=== PATIENT | male | born 1960 | race Caucasian/White ===

== ENCOUNTER 2017-08-09 12:22 | Emergency (ER) | payer SELFPAY ==
[~2017-08-09 12:22] MED LIST: CHLO10 PO; CHLO25 PO; CHLO5CAP3 PO; EXFO5TAB2 PO; FOLI1 PO; TAB-TAB PO; THIA100T PO
--- NOTE | 2017-08-09 12:43 | PD ---
HPI Chief Complaint: Fall Time Seen by Provider: 13:26 Travel History International Travel<30 days: No Contact w/Intl Traveler<30days: No History of Present Illness HPI 57-year-old male presents to the ED via EMS after a fall while intoxicated. On presentation the patient is intoxicated, noncooperative. He endorses drinking today but will not quantify how much. He states that he drinks every day. He complains of pain in his left cheek but otherwise states "I'm fine. Leave me alone. Let me go to sleep." EMS reports patient is legally blind. PFSH Past Medical History Autoimmune Disease: No Blood Disorders: No Anxiety: Yes Depression: No Heart Rhythm Problems: No Cancer: No Cardiovascular Problems: No High Cholesterol: No Chemotherapy: No Chest Pain: No Congestive Heart Failure: No Cerebrovascular Accident: No Endocrine: No Genitourinary: No Hiatal Hernia: Yes Hypertension: Yes Immune Disorder: No Musculoskeletal: No Neurologic: No Psychiatric: Yes Reproductive: No Respiratory: No Radiation Therapy: No Ulcer: Yes Past Surgical History Abdominal Surgery: Yes (HIATAL HERNIA, GALLBLADDER REMOVED) Cardiac Surgery: No Cholecystectomy: Yes Ear Surgery: No Endocrine Surgery: No Eye Surgery: No Genitourinary Surgery: No Gynecologic Surgery: No Oral Surgery: No Thoracic Surgery: No Social History Alcohol Use: Yes (DAILY ) Tobacco Use: No Substance Use: No Allergies-Medications (Allergen,Severity, Reaction): Coded Allergies: morphine (Unverified Allergy, Severe, Hallucinations, 12/29/16) oxycodone (Unverified Allergy, Severe, Itching, 12/29/16) Reported Meds & Prescriptions Reported Meds & Active Scripts Active Reported Librium (Chlordiazepoxide) 5 Mg Cap 5 Mg PO BID ON 08/18/13, THEN STOP MEDICATION Librium (Chlordiazepoxide) 5 Mg Cap 5 Mg PO Q6H ON 08/17/13 Librium 10 mg Cap (Chlordiazepoxide) 10 Mg Cap 10 Mg PO Q6 ON 08/16/13 Librium (Chlordiazepoxide) 5 Mg Cap 15 Mg PO Q6H ON 08/15/13 Librium 10 mg Cap (Chlordiazepoxide) 10 Mg Cap 20 Mg PO Q6 ON 08/14/13 Librium 25 mg Cap (Chlordiazepoxide) 25 Mg Cap 25 Mg PO Q6 ON 08/13/13 Multivitamin (Multivitamins) 1 Tab Tab 1 Tab PO DAILY 30 Days Folate 1 Mg Tab (Folic Acid) 1 Mg Tab 1 Mg PO DAILY 30 Days Thiamine HCl 100 Mg Tab 100 Mg PO DAILY 30 Days Exforge (Amlodipine/Valsartan) 5 Mg/320 Mg Tab 1 Tab PO DAILY Review of Systems ROS Limitations: Other: (patient seen in ambulatory, uncooperative.) Except as stated in HPI: all other systems reviewed are Neg Physical Exam Exam Limitations: Intoxication, Uncooperative, Other: (patient seen in ambulance hallway. ) Narrative GENERAL: Well-nourished, well-developed white male in no acute distress. SKIN: Focused skin assessment warm/dry. 1 cm superficial laceration on the left cheek bone. HEAD: Normocephalic. Tender edema of the left cheek bone. The left eye is swollen shut. EYES: Patient uncooperative to eye exam. DENTAL: Patient is able to open his close his mouth. No tenderness to palpation at the TMJs. He denies malocclusion. NECK: In a c-collar. CARDIOVASCULAR: Regular rate and rhythm without murmurs, gallops, or rubs. CHEST: Nontender throughout without deformity or crepitus. RESPIRATORY: Breath sounds clear and equal bilaterally. No accessory muscle use. GASTROINTESTINAL: Abdomen soft, non-tender, nondistended. MUSCULOSKELETAL: No cyanosis, or edema. No tenderness to palpation of the joints are up of the upper and lower extremities bilaterally. Patient moves extremities spontaneously. 5/5 strength in the muscle groups of the upper and lower extremities bilaterally. BACK: Nontender without obvious deformity. No CVA tenderness. Data Data Last Documented VS Vital Signs Date Time Temp Pulse Resp B/P (MAP) Pulse Ox O2 Delivery O2 Flow Rate FiO2 08/09/17 16:15 (76) 08/09/17 13:03 97.9 64 18 97 Room Air Orders Orders Ct Brain W/O Iv Contrast(Rout) (08/09/17 12:38) Ct Cerv Spine W/O Contrast (08/09/17 12:38) Ct Facial Bones W/O Iv Cont (08/09/17 12:38) Tetanus/Diphtheria Tox Adult (Tetanus/Di (08/09/17 13:45) Ed Discharge Order (08/09/17 16:15) MDM Medical Decision Making Medical Screen Exam Complete: Yes Emergency Medical Condition: Yes Differential Diagnosis Facial fracture versus cervical spondylosis versus skull fracture versus ICH versus acute alcohol intoxication versus other Narrative Course 57-year-old male presents to the ED via EMS after a fall while intoxicated. On presentation the patient is intoxicated, noncooperative. He endorses drinking today but will not quantify how much. He states that he drinks every day. He complains of pain in his left cheek but otherwise states "I'm fine. Leave me alone. Let me go to sleep." EMS reports patient is legally blind. Patient arrives on a backboard and in a c-collar. He was cleared from the backboard. Vitals reviewed. On exam the patient is alert, appropriately responsive although resistant to exam. Limited exam performed in the ambulance iraheta reveals a small superficial laceration on the left cheek with surrounding tender erythema and ecchymosis. The left eye is swollen shut. The patient is in a c-collar. Patient is moving all extremities spontaneously. CT head: No acute hemorrhage or mass effect. Extensive soft tissue swelling over the left orbit and facial bones with no definitive fracture visualized. CT cervical spine: Negative trauma CT per radiology read. CT facial bones: Extensive soft tissue swelling and hematoma over the left side of the face with no acute fracture or malalignment. All radiological results per radiologist read. On recheck the patient is sleeping. We'll allow him to sleep it off and reevaluate for sobriety before discharge. The patient has a visitor that comes to the bedside. She is sober and agrees to take the patient home and stay with him for the next several hours. The patient arrived approximately 1240 and is now 1625. I think is reasonable to discharge this patient into his friend's care. Patient instructed to follow-up with [facility] for treatment of chronic alcoholism. He is instructed to use ice, anti-inflammatories to treat swelling and pain from the facial injury. He is agreeable to the care plan. He is stable and discharged home. Diagnosis Primary Impression: Acute alcohol intoxication Qualified Codes: F10.929 - Alcohol use, unspecified with intoxication, unspecified Additional Impressions: Fall Qualified Codes: W19.XXXA - Unspecified fall, initial encounter Facial contusion Qualified Codes: S00.83XA - Contusion of other part of head, initial encounter Referrals: Primary Care Physician [facility] Additional Instructions: Rest, hydrate. Use ice packs 10-15 minutes per session 3-4 times a day to reduce swelling. Use [id number] pain medications as per described on the label, as needed for pain. Follow-up with her primary care provider. Follow-up with [facility] for treatment of alcohol abuse. Return to the ED for any urgent or emergent medical condition. Disposition: 01 DISCHARGE HOME Condition: Stable Thalia Benitez Aug 09, 2017 12:43
[2017-08-09 13:03] VITALS: BP 107/60; PULSE 64; RESP 18; TEMP 97.9; O2SAT 97
--- NOTE | 2017-08-09 13:15 | RADRPT ---
EXAM DATE/TIME: 08/09/2017 12:58 [facility] COMPARISON: CT BRAIN W/O CONTRAST, August 10, 2013, 16:58. INDICATIONS : Fall left eye swelling RADIATION DOSE: 67.14 CTDIvol (mGy) MEDICAL HISTORY : Hypertension. Blind SURGICAL HISTORY : None. ENCOUNTER: Initial ACUITY: 1 day PAIN SCALE: 0/10 LOCATION: cranial TECHNIQUE: Multiple contiguous axial images were obtained of the head. Using automated exposure control and adj ustment of the mA and/or kV according to patient size, radiation dose was kept as low as reasonably a chievable to obtain optimal diagnostic quality images. DICOM format image data is available electro nically for review and comparison. FINDINGS: CEREBRUM: The ventricles are stable in appearance with mild to moderate atrophic change with sulcal and ventric ular prominence. No evidence of midline shift, mass lesion, hemorrhage or acute infarction. No extra -axial fluid collections are seen. POSTERIOR FOSSA: The cerebellum and brainstem are intact. The 4th ventricle is midline. The cerebellopontine angle i s unremarkable. EXTRACRANIAL: The visualized portion of the orbits is intact. Extensive soft tissue swelling is noted over the left orbit and facial bones with no definite fracture. SKULL: The calvaria is intact. No evidence of skull fracture. CONCLUSION: 1. No acute hemorrhage or mass effect. 2. Extensive soft tissue swelling over the left orbit and facial bones with no definite fracture visu alized. Please see facial bone CT which is pending and will be reported separately. Mohit Velazquez MD on August 09, 2017 at 13:12 Board Certified Radiologist. This report was verified electronically.
--- NOTE | 2017-08-09 13:24 | RADRPT ---
EXAM DATE/TIME: 08/09/2017 12:58 [facility] COMPARISON: No previous studies available for comparison. INDICATIONS : Fall lt eye swelling RADIATION DOSE: 19.83 CTDIvol (mGy) MEDICAL HISTORY : Hypertension. Legally blind SURGICAL HISTORY : None. ENCOUNTER: Initial ACUITY: 1 day PAIN SCALE: 0/10 LOCATION: neck TECHNIQUE: Volumetric scanning of the cervical spine was performed. Multiplanar reconstructions i n the sagittal, coronal and oblique axial planes were performed. Using automated exposure control a nd adjustment of the mA and/or kV according to patient size, radiation dose was kept as low as reason ably achievable to obtain optimal diagnostic quality images. DICOM format image data is available e lectronically for review and comparison. FINDINGS: The sagittal reconstructions demonstrate normal alignment and normal prevertebral soft tissues. The d ens is intact and there is a normal atlantoaxial relationship. The axial images demonstrate that the vertebral bodies and posterior elements are intact. The soft ti ssues are within normal limits. There is no evidence of acute fracture or malalignment. CONCLUSION: Negative trauma CT. Mohit Velazquez MD on August 09, 2017 at 13:21 Board Certified Radiologist. This report was verified electronically.
--- NOTE | 2017-08-09 13:26 | RADRPT ---
EXAM DATE/TIME: 08/09/2017 12:58 [facility] COMPARISON: No previous studies available for comparison. INDICATIONS : Pain and swelling along the left orbit after fall.. RADIATION DOSE: 21.96 CTDIvol (mGy) MEDICAL HISTORY : Hypertension. Legally blind SURGICAL HISTORY : None. ENCOUNTER: Initial ACUITY: 1 day PAIN SCORE: 0/10 LOCATION: facial TECHNIQUE: Volumetric scanning of the facial bones was performed. Using automated exposure control and adjustme nt of the mA and/or kV according to patient size, radiation dose was kept as low as reasonably achiev able to obtain optimal diagnostic quality images. DICOM format image data is available electronicall y for review and comparison. FINDINGS: ORBITS: The orbital and infraorbital osseous structures are intact. The retroconal structures have a normal configuration. No radiopaque foreign bodies are seen. NASAL BONE: The nasal bone and maxillary spine are intact ZYGOMATIC ARCHES: Symmetric without evidence of fracture. SINUSES: The maxillary, ethmoid and frontal sinuses are intact. No air-fluid levels seen. NASAL CAVITY: The nasal septum is intact and midline. The lacrimal ducts are intact. SOFT TISSUES: No radiopaque foreign bodies seen. Extensive soft tissue swelling is noted over the left orbit and fa cial bones with mildly heterogeneous hematoma along the left maxilla. This measures up to 3.1 x 1.9 c m in diameter. INTRACRANIAL: No intracranial air seen. CRIBIFORM PLATE: Grossly intact. CONCLUSION: Extensive soft tissue swelling and hematoma over the left side of the face with no acute fracture or malalignment. Mohit Velazquez MD on August 09, 2017 at 13:22 Board Certified Radiologist. This report was verified electronically.
[2017-08-09] MEDS ORDERED: TETANUS/DIPHTHERIA TOXOID ADULT 0.5 ML VIAL IM ONE (13:45)
== END 2017-08-09 16:25 | disposition home or self-care (01) ==
LOC: NEDAMB 12:22
DX: F10.129 Alcohol abuse with intoxication, unspecified (principal); S00.83XA Contusion of other part of head, initial encounter; W19.XXXA Unspecified fall, initial encounter; Z23 Encounter for immunization
CPT/HCPCS: 70450; 70486; 72125; 90471; 90714

== ENCOUNTER 2017-10-03 14:59 | Inpatient (IN) | payer MEDICARE ==
[2017-10-03] VITALS (14 sets, daily range): BP systolic 114–153; BP diastolic 62–89; PULSE 80–110; RESP 17–26; TEMP 97.9–99; O2SAT 96–98
[~2017-10-03] VITALS: Ht 177.8 cm; Wt 96.5 kg
[2017-10-03] MEDS ORDERED: TRAZ50TA12 PO (15:15)
[2017-10-03] MEDS ORDERED: CARV3.12 PO (15:15)
[2017-10-03] MEDS ORDERED: NIFE20 PO (15:15)
[2017-10-03] MEDS ORDERED: ATOR40TA16 PO (15:15)
--- NOTE | 2017-10-03 15:24 | PD ---
HPI Chief Complaint: General Weakness Time Seen by Provider: 15:18 Travel History International Travel<30 days: No Contact w/Intl Traveler<30days: No Traveled to known affect area: No History of Present Illness HPI Patient presents to the emergency department for caregiver issues. Per EMS the neighbors called 911 because they are concerned that his caretakers are not providing adequate care for him. He states that he has face burning which is chronic for him. There is a cope with his been living in his home for about 8 months taking care of him. He did not eat breakfast or brushes teeth this morning. States that he drinks 1 glass of liquor every day. He does have a history of tremors with alcohol withdrawal but he denies alcohol withdrawal seizures. He denies chest pain, headache, shortness of breath, nausea, vomiting , abdominal pain, neck pain. States that he fell 3 weeks ago. Report subjective chills and fever. States he thinks his last drink was this morning. PFSH Past Medical History Autoimmune Disease: No Blood Disorders: No Anxiety: Yes Depression: No Heart Rhythm Problems: No Cancer: No Cardiovascular Problems: No High Cholesterol: Yes Chemotherapy: No Chest Pain: No Congestive Heart Failure: No Cerebrovascular Accident: No Diminished Hearing: No Endocrine: No Gastrointestinal Disorders: Yes Genitourinary: No Hiatal Hernia: Yes Hypertension: Yes Immune Disorder: No Musculoskeletal: No Neurologic: No Psychiatric: Yes Reproductive: No Respiratory: No Radiation Therapy: No Ulcer: Yes Influenza Vaccination: Yes ?: Not Past Surgical History Abdominal Surgery: Yes (HIATAL HERNIA, GALLBLADDER REMOVED) Cardiac Surgery: No Cholecystectomy: Yes Ear Surgery: No Endocrine Surgery: No Eye Surgery: No Genitourinary Surgery: No Gynecologic Surgery: No Oral Surgery: No Thoracic Surgery: No Other Surgery: Yes Social History Alcohol Use: Yes (DAILY ) Tobacco Use: No Substance Use: No Allergies-Medications (Allergen,Severity, Reaction): Coded Allergies: morphine (Unverified Allergy, Severe, Hallucinations, 10/03/17) oxycodone (Unverified Allergy, Severe, Itching, 10/03/17) Reported Meds & Prescriptions Reported Meds & Active Scripts Active Reported Atorvastatin (Atorvastatin Calcium) 40 Mg Tab 0 PO HS Trazodone (Trazodone HCl) 50 Mg Tab 0 PO HS Nifedipine 20 Mg Cap 0 PO QID Carvedilol 3.125 Mg Tab 0 PO BID Review of Systems Except as stated in HPI: all other systems reviewed are Neg Physical Exam Narrative GENERAL: No acute distress. SKIN: Focused skin assessment warm/dry. HEAD: Atraumatic. Normocephalic. EYES: Patient is blind. No scleral icterus. No injection or drainage. ENT: No nasal bleeding or discharge. Mucous membranes pink and moist. NECK: Trachea midline. No JVD. CARDIOVASCULAR: Regular rate and rhythm. No murmur appreciated. RESPIRATORY: No accessory muscle use. Clear to auscultation. Breath sounds equal bilaterally. GASTROINTESTINAL: Abdomen soft, non-tender, nondistended. Hepatic and splenic margins not palpable. MUSCULOSKELETAL: No obvious deformities. No clubbing. No cyanosis. No edema. NEUROLOGICAL: Awake and alert. No obvious cranial nerve deficits. Motor grossly within normal limits. Normal speech. PSYCHIATRIC: Appropriate mood and affect; insight and judgment normal. Alert and oriented to person, place, time. Data Data Last Documented VS Vital Signs Date Time Temp Pulse Resp B/P (MAP) Pulse Ox O2 Delivery O2 Flow Rate FiO2 10/03/17 16:28 93 18 150/89 (109) 98 10/03/17 15:38 Room Air 10/03/17 15:05 97.9 Orders Orders Electrocardiogram (10/03/17 15:18) Complete Blood Count With Diff (10/03/17 15:18) Comprehensive Metabolic Panel (10/03/17 15:18) Creatine Kinase (Cpk) (10/03/17 15:18) Prothrombin Time / Inr (Pt) (10/03/17 15:18) Act Partial Throm Time (Ptt) (10/03/17 15:18) Troponin I (10/03/17 15:18) Urinalysis - C+S If Indicated (10/03/17 15:18) Chest, Single Ap (10/03/17 15:18) Ct Brain W/O Iv Contrast(Rout) (10/03/17 15:18) Sodium Chloride 0.9% Flush (Ns Flush) (10/03/17 15:30) Drug Screen, Random Urine (10/03/17 15:18) Alcohol (Ethanol) (10/03/17 15:18) Tylenol (Acetaminophen) (10/03/17 15:18) Salicylates (Aspirin) (10/03/17 15:18) Magnesium (Mg) (10/03/17 15:18) [place] (Li) (10/03/17 15:18) Blood Glucose (10/03/17 15:26) Ecg Monitoring (10/03/17 15:26) Iv Access Insert/Monitor (10/03/17 15:26) Oximetry (10/03/17 15:26) Potassium Chloride (Kcl) (10/03/17 16:45) Potassium Chlor 20 Meq Premix (Kcl 20 Me (10/03/17 16:45) Sodium Chlor 0.9% 1000 Ml Inj (Ns 1000 M (10/03/17 16:45) Admit Order (Ed Use Only) (10/03/17 17:22) Labs Laboratory Tests Test 10/03/17 15:20 10/03/17 15:30 10/03/17 16:45 Urine Collection Type CLEAN CATCH Urine Color YELLOW Urine Turbidity CLEAR Urine pH 6.0 Urine Specific [place] 1.020 Urine Protein 100 mg/dL Urine Glucose (UA) NEG mg/dL Urine Ketones 80 OR GREATER mg/dL Urine Occult Blood SMALL Urine Nitrite NEG Urine Bilirubin MOD Urine Urobilinogen 2.0 MG/DL Urine Leukocyte Esterase NEG Urine RBC 4-9 /hpf Urine Squamous Epithelial Cells 0-5 /hpf Urine Granular Casts 6-9 /lpf Microscopic Urinalysis Comment CULT NOT INDICATED Urine Collection Time 15:20 Urine Opiates Screen NEG Urine Barbiturates Screen NEG Urine Amphetamines Screen NEG Urine Benzodiazepines Screen NEG Urine Cocaine Screen NEG Urine Cannabinoids Screen NEG White Blood Count 4.3 TH/MM3 Red Blood Count 4.08 MIL/MM3 Hemoglobin 14.0 GM/DL Hematocrit 40.3 % Mean Corpuscular Volume 98.9 FL Mean Corpuscular Hemoglobin 34.3 PG Mean Corpuscular Hemoglobin Concent 34.7 % Red Cell Distribution Width 12.7 % Platelet Count 76 TH/MM3 Mean Platelet Volume 6.9 FL Neutrophils (%) (Auto) 62.0 % Lymphocytes (%) (Auto) 24.8 % Monocytes (%) (Auto) 12.4 % Eosinophils (%) (Auto) 0.2 % Basophils (%) (Auto) 0.6 % Neutrophils # (Auto) 2.7 TH/MM3 Lymphocytes # (Auto) 1.1 TH/MM3 Monocytes # (Auto) 0.5 TH/MM3 Eosinophils # (Auto) 0.0 TH/MM3 Basophils # (Auto) 0.0 TH/MM3 CBC Comment AUTO DIFF Differential Comment AUTO DIFF CONFIRMED Prothrombin Time 11.6 SEC Prothromb Time International Ratio 1.1 RATIO Activated Partial Thromboplast Time 27.6 SEC Blood Urea Nitrogen 10 MG/DL Creatinine 0.94 MG/DL Random Glucose 108 MG/DL Total Protein 7.4 GM/DL Albumin 3.2 GM/DL Calcium Level 8.2 MG/DL Magnesium Level 1.5 MG/DL Alkaline Phosphatase 76 U/L Aspartate Amino Transf (AST/SGOT) 416 U/L Alanine Aminotransferase (ALT/SGPT) 167 U/L Total Bilirubin 1.5 MG/DL Sodium Level 136 MEQ/L Potassium Level 2.7 MEQ/L Chloride Level 94 MEQ/L Carbon Dioxide Level 23.7 MEQ/L Anion Gap 18 MEQ/L Estimat Glomerular Filtration Rate 83 ML/MIN Total Creatine Kinase 226 U/L Troponin I LESS THAN 0.02 NG/ML Ethyl Alcohol Level 330 MG/DL MDM Medical Decision Making Medical Screen Exam Complete: Yes Emergency Medical Condition: Yes Interpretation(s) ECG: Sinus rhythm, rate 83, left axis deviation, ST depression 1 and aVL, T- wave inversion in V1 V2 V3 Labs: Decreased potassium, mag 1.5, AST and ALT increased, alcohol increased; lithium/salicylate/acetaminophen pending at time of admission, admit team to follow. Last Impressions Head CT 10/03/171517 Signed Impressions: Service Date/Time: Tuesday, October 03, 2017 16:00 - CONCLUSION: 1. Stable senescent changes. 2. No acute intracranial abnormality. Sammy Solomon MD Chest X-Ray 10/03/171517 Signed Impressions: Service Date/Time: Tuesday, October 03, 2017 15:45 - CONCLUSION: 1. No acute cardiopulmonary disease. Sammy Solomon MD Differential Diagnosis EtOH abuse, EtOH intoxication, infectious process (UTI, pna), intracranial abnormality (CVA, hemorrhage) Narrative Course Patient presents to the emergency department with concern for caregiver issues. Place patient on monitoring specialist, IV access obtained, and head CT/chest x-ray , EKG, labs ordered. Ordered for KCl 40 mEQ p.o. and 20 mEq IV over 2 hours for hypokalemia. 1 L IV normal saline also ordered. Spoke to Pily test case developer, advised to admit patient for observation. Physician Communication Physician Communication Spoke to Pily test case developer about loss of caregiver/caregiver issues. Advised me to admit patient for observation. Diagnosis Primary Impression: Hypokalemia Additional Impression: Intoxication Admitting Information Admitting Physician Requests: Observation Condition: Stable Chaya Cross MD October 03, 2017 15:24
[2017-10-03] MEDS ORDERED: SODIUM CHLORIDE 0.9% FLUSH 10 ML FLUSH IV FLUSH PRN ×2 (15:30→17:30)
[2017-10-03 15:31] LABS: BILIRUBIN, URINE MOD (NEG); BLOOD, URINE SMALL (NEG); GLUCOSE,URINE NEG (NEG); KETONE, URINE 80 OR GREATER mg/dL (NEG); NITRITE,URINE NEG (NEG); URINE COLOR YELLOW (YELLW/STRAW); URINE LEUKOCYTE ESTERASE NEG (NEG)
[2017-10-03 15:39] LABS: SQUAMOUS EPITHELIAL CELL URINE 0-5 /hpf (0-5)
[2017-10-03 15:39] LABS: AUTOMATED NEUTROPHIL # 2.7 TH/MM3 (1.8-7.7); BASOPHIL % 0.6 % (0.0-2.0); EOSINOPHIL % 0.2 % (0.0-4.0); HEMATOCRIT 40.3 % (39.0-51.0); LYMPH % 24.8 % (9.0-44.0); LYMPHOCYTE # 1.1 TH/MM3 (1.0-4.8); MEAN CELL VOLUME 98.9 FL (80.0-100.0); MEAN CORPUSCULAR HEMOGLOBIN 34.3 PG (27.0-34.0); MEAN CORPUSCULAR HGB CONC 34.7 % (32.0-36.0); MEAN PLATELET VOLUME 6.9 FL (7.0-11.0); MONO % 12.4 % (0.0-8.0); MONOCYTE # 0.5 TH/MM3 (0-0.9); PLATELET COUNT 76 TH/MM3 (150-450); RED BLOOD COUNT 4.08 MIL/MM3 (4.50-5.90); RED CELL DISTRIBUTION WIDTH 12.7 % (11.6-17.2); WHITE BLOOD COUNT 4.3 TH/MM3 (4.0-11.0)
--- NOTE | 2017-10-03 16:05 | RADRPT ---
EXAM DATE/TIME: 10/03/2017 15:45 [facility] COMPARISON: No previous studies available for comparison. INDICATIONS : Syncope MEDICAL HISTORY : Hypertension. SURGICAL HISTORY : None. ENCOUNTER: Initial ACUITY: 1 day PAIN SCORE: 0/10 LOCATION: Bilateral chest FINDINGS: A single view of the chest demonstrates the lungs to be symmetrically aerated without evidence of mas s, infiltrate or effusion. The cardiomediastinal contours are unremarkable. Osseous structures are intact. CONCLUSION: 1. No acute cardiopulmonary disease. Sammy Solomon MD on October 03, 2017 at 16:03 Board Certified Radiologist. This report was verified electronically.
--- NOTE | 2017-10-03 16:18 | RADRPT ---
EXAM DATE/TIME: 10/03/2017 16:00 [facility] COMPARISON: CT BRAIN W/O CONTRAST, August 09, 2017, 12:58. INDICATIONS : Altered mental status. Weakness. RADIATION DOSE: 57.21 CTDIvol (mGy) MEDICAL HISTORY : Hypertension. Blind. SURGICAL HISTORY : Cholecystectomy. Hiatal hernia. ENCOUNTER: Initial ACUITY: 1 day PAIN SCALE: 0/10 LOCATION: cranial TECHNIQUE: Multiple contiguous axial images were obtained of the head. Using automated exposure control and adj ustment of the mA and/or kV according to patient size, radiation dose was kept as low as reasonably a chievable to obtain optimal diagnostic quality images. DICOM format image data is available electro nically for review and comparison. FINDINGS: CEREBRUM: Mild diffuse cerebral volume loss. The ventricles are normal for degree of atrophy. No evidence of m idline shift, mass lesion, hemorrhage or acute infarction. No extra-axial fluid collections are seen . POSTERIOR FOSSA: The cerebellum and brainstem are intact. The 4th ventricle is midline. The cerebellopontine angle i s unremarkable. EXTRACRANIAL: The visualized portion of the orbits is intact. SKULL: The calvaria is intact. No evidence of skull fracture. CONCLUSION: 1. Stable senescent changes. 2. No acute intracranial abnormality. Sammy Solomon MD on October 03, 2017 at 16:15 Board Certified Radiologist. This report was verified electronically.
[2017-10-03 16:19] LABS: ALBUMIN 3.2 GM/DL (3.4-5.0); ALKALINE PHOSPHATASE 76 U/L (45-117); ALT (GPT) 167 U/L (12-78); AST (GOT) 416 U/L (15-37); BICARBONATE 23.7 MEQ/L (21.0-32.0); BLOOD UREA NITROGEN 10 MG/DL (7-18); CALCIUM 8.2 MG/DL (8.5-10.1); CHLORIDE 94 MEQ/L (98-107); CREATININE 0.94 MG/DL (0.60-1.30); GLOMERULAR FILTRATION RATE 83 ML/MIN (>89); GLUCOSE,RANDOM 108 MG/DL (74-106); MAGNESIUM 1.5 MG/DL (1.5-2.5); SODIUM (NA) 136 MEQ/L (136-145); TOTAL BILIRUBIN ADULT 1.5 MG/DL (0.2-1.0); TOTAL PROTEIN 7.4 GM/DL (6.4-8.2); TROPONIN I LESS THAN 0.02 NG/ML (0.02-0.05)
[2017-10-03 16:34] LABS: INTERNATIONAL NORMALIZED RATIO 1.1 RATIO; PROTHROMBIN TIME - PATIENT 11.6 SEC (9.8-11.6)
[2017-10-03] MEDS ORDERED: SODIUM CHLOR 0.9% 1000 ML INJ 1,000 ML IV ONE (16:45)
[2017-10-03] MEDS ORDERED: POTASSIUM CHLOR 20 MEQ PREMIX 100 ML IV ONE (16:45)
[2017-10-03] MEDS: POTASSIUM CHLORIDE 10 MEQ CONTROLLED RELEASE TAB PO SCH (16:47)
[2017-10-03] MEDS ORDERED: FLUMAZENIL 0.5 MG/5 ML VIAL IV PUSH PRN (17:30)
[2017-10-03] MEDS ORDERED: NALOXONE HCL 0.4 MG/ML AMP IV PUSH PRN (17:30)
[2017-10-03] MEDS ORDERED: ACETAMINOPHEN 325 MG TAB PO PRN (17:30)
[2017-10-03] MEDS ORDERED: LORazepam 2 MG/ML VIAL IV PUSH PRN ×3 (17:30)
[2017-10-03 17:40] LABS: ACETAMINOPHEN LESS THAN 2.0 MCG/ML (10.0-30.0)
[2017-10-03] MEDS ORDERED: CARV12.52 PO (18:43)
[2017-10-03] MEDS ORDERED: TORS5TAB2 PO (18:43)
[2017-10-03] MEDS ORDERED: NIFE90TA2 (18:43)
[2017-10-03] MEDS: LACTATED RINGER'S 1000 ML INJ 1,000 ML IV SCH (18:45)
[2017-10-03] MEDS: LORazepam 2 MG/ML VIAL IV PUSH PRN (19:13)
[2017-10-03] MEDS: CARVEDILOL 6.25 MG TAB PO SCH (20:36)
[2017-10-03] MEDS: LORazepam 2 MG TAB PO PRN ×2 (20:36→23:57)
[2017-10-03 20:42] LABS: MAGNESIUM 1.6 MG/DL (1.5-2.5)
[2017-10-03 20:46] LABS: PHOSPHORUS 2.1 MG/DL (2.5-4.9)
[2017-10-03] MEDS ORDERED: MAGNESIUM SULFATE 1 GM PREMIX 100 ML IV ONE (21:45)
[2017-10-03] MEDS ORDERED: POTASSIUM PHOSPHATE INJ 15 MMOL in SODIUM CHLORIDE 0.9% INJ 150 ML IV ONE (21:45)
[2017-10-03] MEDS: SODIUM CHLORIDE 0.9% FLUSH 10 ML FLUSH IV FLUSH SCH (22:08)
--- NOTE | 2017-10-03 22:46 | EKG ---
Date Performed: 10/03/2017 Time Performed: 15:55:51 PTAGE: 57 years EKG: Sinus rhythm LEFT AXIS DEVIATION NONSPECIFIC T WAVE ABNORMALITIES POOR R WAVE PROGRESSION ABNORMAL ECG PREVIOUS TRACING : 08/10/2013 13.39 No significant change from previous tracing noted. DOCTOR: Sonny Holden Interpretating Date/Time 10/03/2017 22:45:11
[2017-10-04] VITALS (15 sets, daily range): BP systolic 113–140; BP diastolic 40–86; PULSE 80–118; RESP 17–32; TEMP 98–99.8; O2SAT 92–97
[2017-10-04] MEDS: LORazepam 2 MG/ML VIAL IV PUSH PRN ×3 (04:18→16:19)
[2017-10-04 05:16] LABS: AUTOMATED NEUTROPHIL # 3.5 TH/MM3 (1.8-7.7); BASOPHIL % 0.4 % (0.0-2.0); EOSINOPHIL % 0.6 % (0.0-4.0); HEMATOCRIT 37.2 % (39.0-51.0); HEMOGLOBIN 12.7 GM/DL (13.0-17.0); LYMPH % 15.8 % (9.0-44.0); LYMPHOCYTE # 0.8 TH/MM3 (1.0-4.8); MEAN CELL VOLUME 100.3 FL (80.0-100.0); MEAN CORPUSCULAR HEMOGLOBIN 34.2 PG (27.0-34.0); MEAN CORPUSCULAR HGB CONC 34.1 % (32.0-36.0); MEAN PLATELET VOLUME 7.2 FL (7.0-11.0); MONO % 11.4 % (0.0-8.0); MONOCYTE # 0.6 TH/MM3 (0-0.9); NEUT % 71.8 % (16.0-70.0); PLATELET COUNT 63 TH/MM3 (150-450); RED BLOOD COUNT 3.71 MIL/MM3 (4.50-5.90); RED CELL DISTRIBUTION WIDTH 12.2 % (11.6-17.2); WHITE BLOOD COUNT 4.9 TH/MM3 (4.0-11.0)
[2017-10-04 05:22] LABS: CHLORIDE 98 MEQ/L (98-107); SODIUM (NA) 137 MEQ/L (136-145)
[2017-10-04 05:25] LABS: CALCIUM 8.3 MG/DL (8.5-10.1)
[2017-10-04 05:26] LABS: BICARBONATE 27.6 MEQ/L (21.0-32.0); BLOOD UREA NITROGEN 8 MG/DL (7-18); GLUCOSE,RANDOM 121 MG/DL (74-106)
[2017-10-04] MEDS: LACTATED RINGER'S 1000 ML INJ 1,000 ML IV SCH ×2 (05:27→16:22)
[2017-10-04 05:29] LABS: ALT (GPT) 146 U/L (12-78); AST (GOT) 353 U/L (15-37); CREATININE 0.85 MG/DL (0.60-1.30); GLOMERULAR FILTRATION RATE 93 ML/MIN (>89)
[2017-10-04 05:31] LABS: TOTAL BILIRUBIN ADULT 1.1 MG/DL (0.2-1.0); TOTAL PROTEIN 6.8 GM/DL (6.4-8.2)
[2017-10-04 05:32] LABS: ALKALINE PHOSPHATASE 102 U/L (45-117)
[2017-10-04] MEDS: ONDANSETRON HCL 4 MG/2 ML VIAL IVP PRN (06:17)
[2017-10-04] MEDS ORDERED: SODIUM PHOSPHATE INJ 30 MMOL in SODIUM CHLOR 0.9% 250 ML INJ 240 ML IV PRN (09:15)
[2017-10-04] MEDS ORDERED: MAGNESIUM OXIDE 400 MG TAB PO PRN (09:15)
[2017-10-04] MEDS ORDERED: POTASSIUM CHLOR 40 MEQ PREMIX 100 ML IV PRN ×2 (09:15)
[2017-10-04] MEDS ORDERED: POTASSIUM PHOSPHATE INJ 30 MMOL in SODIUM CHLOR 0.9% 250 ML INJ 250 ML IV PRN (09:15)
[2017-10-04] MEDS ORDERED: MAGNESIUM SULFATE INJ 4 GM in SODIUM CHLORIDE 0.9% INJ 92 ML IV PRN (09:15)
[2017-10-04] MEDS ORDERED: POTASSIUM CHLORIDE 25 MEQ EFFERVESCENT TAB PO PRN (09:15)
[2017-10-04] MEDS ORDERED: POTASSIUM PHOSPHATE MONOBASIC 500 MG TAB PO PRN (09:15)
[2017-10-04] MEDS: CARVEDILOL 6.25 MG TAB PO SCH ×2 (09:22→20:00)
[2017-10-04] MEDS: POTASSIUM CHLORIDE 10 MEQ CONTROLLED RELEASE TAB PO SCH (09:23)
[2017-10-04] MEDS: SODIUM CHLORIDE 0.9% FLUSH 10 ML FLUSH IV FLUSH SCH ×2 (09:25→20:00)
[2017-10-04 10:10] LABS: MAGNESIUM 1.4 MG/DL (1.5-2.5)
[2017-10-04 10:13] LABS: PHOSPHORUS 1.5 MG/DL (2.5-4.9)
[2017-10-04] MEDS: FOLIC ACID 1 MG TAB PO SCH (10:44)
[2017-10-04] MEDS: LORazepam 2 MG TAB PO PRN ×2 (10:44→20:00)
[2017-10-04] MEDS: THIAMINE HCL 100 MG TAB PO SCH (10:44)
[2017-10-04] MEDS: CYANOCOBALAMIN 100 MCG TAB PO SCH (10:54)
--- NOTE | 2017-10-04 12:26 | HHI.HP ---
HPI Service [facility] Primary Care Physician Unknown Admission Diagnosis Hypokalemia, ETOH, caregiver issues, blind Diagnoses: Chief Complaint: Generalized weakness Travel History International Travel<30 Days: No Contact w/Intl Traveler <30 Da: No Traveled to Known Affected Are: No History of Present Illness This patient is a 57-year-old gentleman with a history of ischemic optic neuritis and requires quite a bit of care. He also drinks quite a bit of alcohol and has been doing very well living independently. His neighbors brought him into the hospital because he was unable to care for himself. Patient drinks liquor daily and reports "I am going into DTs". His alcohol level on arrival was 330. Patient did have elevated IN gap and had some hypomagnesemia of 1.5 as well as hypokalemia of 2.7. His LFTs are elevated. Patient has been given IV hydration electrolytes and appears to have improved somewhat. On arrival and evaluation here patient is very tachycardic and tremulous and will need further evaluation in the hospital. Review of Systems Constitutional: DENIES: Diaphoretic episodes, Fatigue, Fever, Weight gain, Weight loss, Chills, Dizziness, Change in appetite, Night Sweats Endocrine: DENIES: Heat/cold intolerance Eyes: COMPLAINS OF: Vision loss, DENIES: Blurred vision, Diplopia, Eye inflammation, Eye pain, Photosensitivity, Double Vision Ears, nose, mouth, throat: DENIES: Tinnitus, Hearing loss, Vertigo, Nasal discharge, Oral lesions, Throat pain, Hoarseness, Ear Pain, Running Nose, Epistaxis, Sinus Pain, Toothache, Odynophagia Cardiovascular: DENIES: Chest pain, Palpitations, Syncope, Dyspnea on Exertion , PND, Lower Extremity Edema, Orthopnea, Claudication Gastrointestinal: DENIES: Abdominal pain, Black stools, Bloody stools, Constipation, Diarrhea, Nausea, Vomiting, Difficulty Swallowing, Anorexia Genitourinary: DENIES: Sexual dysfunction, Urinary frequency, Urinary incontinence, Urgency, Hematuria, Dysuria, Nocturia, Penile Discharge, Testicular Pain, Testicular Swelling Musculoskeletal: DENIES: Joint pain, Muscle aches, Stiffness, Joint Swelling, Back pain, Neck pain Integumentary: DENIES: Abnormal pigmentation, Nail changes, Pruritus, Rash Hematologic/lymphatic: DENIES: Bruising, Lymphadenopathy Immunologic/allergic: DENIES: Eczema, Urticaria Neurologic: COMPLAINS OF: Abnormal gait, Tremor, Poor Balance, DENIES: Headache , Localized weakness, Paresthesias, Seizures, Speech Problems Psychiatric: COMPLAINS OF: Anxiety, DENIES: Confusion, Mood changes, Depression , Hallucinations, Agitation, Suicidal Ideation, Homicidal Ideation, Delusions Except as stated in HPI: all other systems reviewed are Neg Past Family Social History Past Medical History Ischemic optic neuritis with blindness Alcohol dependency Hypertension Hyperlipidemia Anxiety Past Surgical History Cholecystectomy Hernia Reported Medications Reviewed in the EMR Allergies: Coded Allergies: morphine (Unverified Allergy, Severe, Hallucinations, 10/03/17) oxycodone (Unverified Allergy, Severe, Itching, 10/03/17) Active Ordered Medications Reviewed in the EMR Family History Patient drinks vodka daily Lives alone No tobacco Social History Father from complications of CHF Mother is alive and well in [place] Physical Exam Vital Signs Vital Signs Date Time Temp Pulse Resp B/P (MAP) Pulse Ox O2 Delivery O2 Flow Rate FiO2 10/04/17 04:00 98.0 98 22 131/40 (70) 95 10/04/17 00:03 98.9 104 22 113/67 (82) 10/03/17 23:05 110 20 114/74 (87) 10/03/17 23:02 106 10/03/17 22:07 102 20 118/67 (84) 10/03/17 21:07 96 17 114/62 (79) 96 10/03/17 20:07 96 19 133/85 (101) 96 10/03/17 19:07 80 25 150/86 (107) 97 10/03/17 19:00 99.0 86 26 153/85 (107) 96 10/03/17 18:53 86 19 136/81 (99) 97 10/03/17 18:00 105 10/03/17 17:46 75 18 145/77 (99) 99 10/03/17 17:45 98.7 86 19 136/81 (99) 97 10/03/17 16:28 93 18 150/89 (109) 98 10/03/17 15:38 84 18 125/70 (88) 98 Room Air 10/03/17 15:05 97.9 84 18 127/72 (90) 97 Physical Exam GENERAL: This is a well-nourished, well-developed patient, tremorous SKIN: No rashes, ecchymoses or lesions. Cool and dry. HEAD: Atraumatic. Normocephalic. No temporal or scalp tenderness. EYES: Pupils equal round and reactive. Extraocular motions intact. No scleral icterus. No injection or drainage. ENT: Nose without bleeding, purulent drainage or septal hematoma. Throat without erythema, tonsillar hypertrophy or exudate. Uvula midline. Airway patent. NECK: Trachea midline. No JVD or lymphadenopathy. Supple, nontender, no meningeal signs. CARDIOVASCULAR: Sinus tachycardia without murmurs gallops or rubs RESPIRATORY: Clear to auscultation. Breath sounds equal bilaterally. No wheezes , rales, or rhonchi. GASTROINTESTINAL: Abdomen soft, non-tender, nondistended. No hepato-splenomegaly , or palpable masses. No guarding. MUSCULOSKELETAL: Extremities without clubbing, cyanosis, or edema. No joint tenderness, effusion, or edema noted. No calf tenderness. Negative Homans sign bilaterally. NEUROLOGICAL: Awake and alert. Vision impaired. Motor and sensory grossly within normal limits. Five out of 5 muscle strength in all muscle groups. Normal speech. Laboratory Laboratory Tests Test 10/03/17 15:20 10/03/17 15:30 10/03/17 16:45 10/03/17 20:18 Urine Collection Type CLEAN CATCH Urine Color YELLOW Urine Turbidity CLEAR Urine pH 6.0 Urine Specific [place] 1.020 Urine Protein 100 Urine Glucose (UA) NEG Urine Ketones 80 OR GREATER Urine Occult Blood SMALL Urine Nitrite NEG Urine Bilirubin MOD Urine Urobilinogen 2.0 Urine Leukocyte Esterase NEG Urine RBC 4-9 Urine Squamous Epithelial Cells 0-5 Urine Granular Casts 6-9 Microscopic Urinalysis Comment CULT NOT INDICATED Urine Collection Time 15:20 Urine Opiates Screen NEG Urine Barbiturates Screen NEG Urine Amphetamines Screen NEG Urine Benzodiazepines Screen NEG Urine Cocaine Screen NEG Urine Cannabinoids Screen NEG White Blood Count 4.3 Red Blood Count 4.08 Hemoglobin 14.0 Hematocrit 40.3 Mean Corpuscular Volume 98.9 Mean Corpuscular Hemoglobin 34.3 Mean Corpuscular Hemoglobin Concent 34.7 Red Cell Distribution Width 12.7 Platelet Count 76 Mean Platelet Volume 6.9 Neutrophils (%) (Auto) 62.0 Lymphocytes (%) (Auto) 24.8 Monocytes (%) (Auto) 12.4 Eosinophils (%) (Auto) 0.2 Basophils (%) (Auto) 0.6 Neutrophils # (Auto) 2.7 Lymphocytes # (Auto) 1.1 Monocytes # (Auto) 0.5 Eosinophils # (Auto) 0.0 Basophils # (Auto) 0.0 CBC Comment AUTO DIFF Differential Comment AUTO DIFF CONFIRMED Prothrombin Time 11.6 Prothromb Time International Ratio 1.1 Activated Partial Thromboplast Time 27.6 Blood Urea Nitrogen 10 Creatinine 0.94 Random Glucose 108 Total Protein 7.4 Albumin 3.2 Calcium Level 8.2 Magnesium Level 1.5 1.6 Alkaline Phosphatase 76 Aspartate Amino Transf (AST/SGOT) 416 Alanine Aminotransferase (ALT/SGPT) 167 Total Bilirubin 1.5 Sodium Level 136 Potassium Level 2.7 3.4 Chloride Level 94 Carbon Dioxide Level 23.7 Anion Gap 18 Estimat Glomerular Filtration Rate 83 Total Creatine Kinase 226 Troponin I LESS THAN 0.02 Salicylates Level LESS THAN 1.7 Acetaminophen Level LESS THAN 2.0 Ethyl Alcohol Level 330 [place] Level LESS THAN 0.1 Phosphorus Level 2.1 Hepatitis A IgM Antibody NONREACTIVE Hepatitis B Surface Antigen NONREACTIVE Hepatitis B Core IgM Antibody NONREACTIVE Hepatitis C IgG Antibody NONREACTIVE Test 10/04/17 04:35 White Blood Count 4.9 Red Blood Count 3.71 Hemoglobin 12.7 Hematocrit 37.2 Mean Corpuscular Volume 100.3 Mean Corpuscular Hemoglobin 34.2 Mean Corpuscular Hemoglobin Concent 34.1 Red Cell Distribution Width 12.2 Platelet Count 63 Mean Platelet Volume 7.2 Neutrophils (%) (Auto) 71.8 Lymphocytes (%) (Auto) 15.8 Monocytes (%) (Auto) 11.4 Eosinophils (%) (Auto) 0.6 Basophils (%) (Auto) 0.4 Neutrophils # (Auto) 3.5 Lymphocytes # (Auto) 0.8 Monocytes # (Auto) 0.6 Eosinophils # (Auto) 0.0 Basophils # (Auto) 0.0 CBC Comment AUTO DIFF Differential Comment AUTO DIFF CONFIRMED Platelet Estimate LOW Platelet Morphology Comment ENLARGED Red Cell Morphology Comment NORMAL Blood Urea Nitrogen 8 Creatinine 0.85 Random Glucose 121 Total Protein 6.8 Albumin 3.0 Calcium Level 8.3 Alkaline Phosphatase 102 Aspartate Amino Transf (AST/SGOT) 353 Alanine Aminotransferase (ALT/SGPT) 146 Total Bilirubin 1.1 Sodium Level 137 Potassium Level 3.4 Chloride Level 98 Carbon Dioxide Level 27.6 Anion Gap 11 Estimat Glomerular Filtration Rate 93 Phosphorus Level 1.5 Magnesium Level 1.4 Result Diagram: 10/04/17 0435 10/04/17 0435 Imaging Last Impressions Head CT 10/03/17 1518 Signed Impressions: Service Date/Time: Tuesday, October 03, 2017 16:00 - CONCLUSION: 1. Stable senescent changes. 2. No acute intracranial abnormality. Sammy Solomon MD Chest X-Ray 10/03/17 1518 Signed Impressions: Service Date/Time: Tuesday, October 03, 2017 15:45 - CONCLUSION: 1. No acute cardiopulmonary disease. MD Bienvenido Tristan VTE Risk Assessment Bienvenido VTE Risk Assessment: Mod/High Risk (score >= 2) VTE Pharm Contraindication: Thrombocytopenia(<50) Farhanai Risk Assessment Model Point Value = 1 Point Value = 2 Point Value = 3 Point Value = 5 Age 41-60 Minor surgery BMI > 25 kg/m2 Swollen legs Varicose veins or History of unexplained or recurrent spontaneous Oral contraceptives or hormone replacement Sepsis (< 1 month) Serious lung disease, including pneumonia (< 1 month) Abnormal pulmonary function Acute myocardial infarction Congestive heart failure (< 1 month) History of inflammatory bowel disease Medical patient at bed rest Age 61-74 Arthroscopic surgery Major open surgery (> 45 min) Laparoscopic surgery (> 45 min) Malignancy Confined to bed (> 72 hours) Immobilizing plaster cast Central venous access Age >= 75 History of VTE Family history of VTE Factor V Leiden Prothrombin [id number] Lupus anticoagulant Anticardiolipin antibodies Elevated serum homocysteine Heparin-induced thrombocytopenia Other congenital or acquired thrombophilia Stroke (< 1 month) Elective arthroplasty Hip, pelvis, or leg fracture Acute spinal cord injury (< 1 month) Prophylaxis Regimen Total Risk Factor Score Risk Level Prophylaxis Regimen 0-1 Low Early ambulation 2 Moderate Order ONE of the following: *Sequential Compression Device (SCD) *Heparin 5000 units SQ BID 3-4 Higher Order ONE of the following medications: *Heparin 5000 units SQ TID *Enoxaparin/Lovenox 40 mg SQ daily (WT < 150 kg, CrCl > 30 mL/min) *Enoxaparin/Lovenox 30 mg SQ daily (WT < 150 kg, CrCl > 10-29 mL/min) *Enoxaparin/Lovenox 30 mg SQ BID (WT < 150 kg, CrCl > 30 mL/min) AND/OR *Sequential Compression Device (SCD) 5 or more Highest Order ONE of the following medications: *Heparin 5000 units SQ TID (Preferred with Epidurals) *Enoxaparin/Lovenox 40 mg SQ daily (WT < 150 kg, CrCl > 30 mL/min) *Enoxaparin/Lovenox 30 mg SQ daily (WT < 150 kg, CrCl > 10-29 mL/min) *Enoxaparin/Lovenox 30 mg SQ BID (WT < 150 kg, CrCl > 30 mL/min) AND *Sequential Compression Device (SCD) Assessment and Plan Problem List: (1) Hypokalemia ICD Code: E87.6 - Hypokalemia Status: Acute Plan: Continue to replace (2) Withdrawal symptoms, alcohol ICD Code: F10.239 - Withdrawal symptoms, alcohol Status: Acute Plan: Continue with CIWA protocol Add Librium Follow-up elect lites for placement Continue with folic acid, multivitamin and B12 (3) Hypomagnesemia ICD Code: E83.42 - Hypomagnesemia Status: Acute Plan: Continue replacement in this patient with known alcohol dependency Assessment and Plan Patient with severe vision impairment and poor living situation. We will consult rehab services to assess for home health care assistance Physician Certification 2 Midnight Certification Type: Admission for Inpatient Services Order for Inpatient Services The services are ordered in accordance with Medicare regulations or non- Medicare payer requirements, as applicable. In the case of services not specified as inpatient-only, they are appropriately provided as inpatient services in accordance with the 2-midnight benchmark. Estimated LOS (days): 3 3 days is the estimated time the patient will need to remain in the hospital, assuming treatment plan goals are met and no additional complications. Post-Hospital Plan: Niya Martin MD October 04, 2017 12:26
[2017-10-04] MEDS: chlordiazePOXIDE 25 MG CAP PO SCH ×2 (13:11→17:55)
[2017-10-04] MEDS: MAGNESIUM SULFATE INJ 2 GM in SODIUM CHLORIDE 0.9% INJ 96 ML IV PRN (17:56)
[2017-10-04] MEDS ORDERED: CHLORHEXIDINE GLUCONATE 2 % 1 PACK (2 CLOTHS)(extra cloths) TOPICAL PRN (21:00)
[2017-10-05] VITALS (25 sets, daily range): BP systolic 118–164; BP diastolic 72–96; PULSE 70–108; RESP 17–33; TEMP 98–100.6; O2SAT 93–94
[2017-10-05] MEDS: ONDANSETRON HCL 4 MG/2 ML VIAL IVP PRN ×2 (03:35→17:42)
[2017-10-05] MEDS: CHLORHEXIDINE GLUCONATE 2 % 1 PACK (2 CLOTHS)(taper/protocol) TOPICAL SCH (04:00)
[2017-10-05 05:17] LABS: MAGNESIUM 1.5 MG/DL (1.5-2.5)
[2017-10-05 05:26] LABS: PHOSPHORUS 2.8 MG/DL (2.5-4.9)
[2017-10-05] MEDS: POTASSIUM CHLOR 20 MEQ PREMIX 100 ML IV PRN ×5 (05:59→23:39)
[2017-10-05] MEDS: LACTATED RINGER'S 1000 ML INJ 1,000 ML IV SCH ×3 (05:59→21:31)
[2017-10-05] MEDS: MAGNESIUM SULFATE INJ 2 GM in SODIUM CHLORIDE 0.9% INJ 96 ML IV PRN (06:17)
[2017-10-05] MEDS ORDERED: LORazepam 1 MG TAB PO ONE (06:45)
[2017-10-05] MEDS: POTASSIUM CHLORIDE 10 MEQ CONTROLLED RELEASE TAB PO SCH (09:00)
[2017-10-05] MEDS: SODIUM CHLORIDE 0.9% FLUSH 10 ML FLUSH IV FLUSH SCH ×2 (10:29→21:31)
[2017-10-05] MEDS: FOLIC ACID 1 MG TAB PO SCH (10:29)
[2017-10-05] MEDS: CARVEDILOL 6.25 MG TAB PO SCH ×2 (10:29→21:31)
[2017-10-05] MEDS: THIAMINE HCL 100 MG TAB PO SCH (10:31)
[2017-10-05] MEDS: CYANOCOBALAMIN 100 MCG TAB PO SCH (10:31)
[2017-10-05] MEDS: chlordiazePOXIDE 25 MG CAP PO SCH ×3 (10:32→21:31)
--- NOTE | 2017-10-05 13:54 | HHI.PR ---
Subjective Remarks Patient seen and evaluated in follow-up for DTs with electrolyte disturbance. CIWA score is 15 and improved with Ativan and Librium. Electrolytes improved Objective Vitals Vital Signs Date Time Temp Pulse Resp B/P (MAP) Pulse Ox O2 Delivery O2 Flow Rate FiO2 10/05/17 07:00 84 23 159/88 (111) 10/05/17 06:00 70 17 141/83 (102) 10/05/17 05:00 76 21 137/73 (94) 10/05/17 04:00 99.9 80 25 125/74 (91) 93 10/05/17 03:00 84 22 142/77 (98) 10/05/17 02:00 80 20 128/72 (90) 10/05/17 01:00 84 22 136/77 (96) 10/05/17 00:00 100.6 88 24 128/74 (92) 93 10/04/17 23:36 85 10/04/17 23:00 88 20 138/86 (103) 92 10/04/17 22:00 80 17 140/80 (100) 10/04/17 21:04 95 21 10/04/17 21:00 84 21 135/76 (95) 92 10/04/17 20:00 99.8 98 22 120/69 (86) 93 10/04/17 19:24 96 24 133/77 (95) 10/04/17 16:00 98.9 100 20 114/65 (81) 97 10/04/17 15:00 92 I/O 10/04/17 10/04/17 10/04/17 10/05/17 10/05/17 10/05/17 07:00 15:00 23:00 07:00 15:00 23:00 Intake Total 1795 ml 960 ml 420 ml 100 ml Output Total 3 ml 750 ml 650 ml Balance 1792 ml 210 ml -230 ml 100 ml Intake Oral 540 ml 960 ml 420 ml IV Total 1255 ml 100 ml Output Urine Total 750 ml 650 ml Stool Total 3 ml 0 ml 0 ml # Voids 3 1 Result Diagram: 10/04/1743410/05/17434 Objective Remarks GENERAL: This is a well-nourished, well-developed patient, tremors CARDIOVASCULAR: Sinus tachycardia without murmurs, gallops, or rubs. RESPIRATORY: Clear to auscultation. Breath sounds equal bilaterally. No wheezes , rales, or rhonchi. GASTROINTESTINAL: Abdomen soft, non-tender, nondistended. Normal active bowel sounds MUSCULOSKELETAL: Extremities without clubbing, cyanosis, or edema. NEURO: Alert & Oriented x4 to person, place, time, situation. Moves all ext x4 A/P Problem List: (1) Hypokalemia ICD Code: E87.6 - Hypokalemia Status: Acute Plan: Continue to replace (2) Withdrawal symptoms, alcohol ICD Code: F10.239 - Withdrawal symptoms, alcohol Status: Acute Plan: Continue with CIWA protocol Continue scheduled Librium Follow-up electrolyte replacement Continue with folic acid, multivitamin and B12 (3) Hypomagnesemia ICD Code: E83.42 - Hypomagnesemia Status: Acute Plan: Continue replacement in this patient with known alcohol dependency (4) LFT elevation ICD Code: R79.89 - LFT elevation Status: Acute Plan: Likely due to alcohol related hepatitis We will follow for improvement Hepatitis viral screen negative Niya Garcia MD October 05, 2017 13:54
[2017-10-06] VITALS (22 sets, daily range): BP systolic 112–154; BP diastolic 77–101; PULSE 70–108; RESP 16–25; TEMP 97.7–100.6; O2SAT 93–100
[2017-10-06] MEDS: POTASSIUM CHLOR 20 MEQ PREMIX 100 ML IV PRN ×3 (01:26→08:48)
[2017-10-06] MEDS: CHLORHEXIDINE GLUCONATE 2 % 1 PACK (2 CLOTHS)(taper/protocol) TOPICAL SCH (04:00)
[2017-10-06] MEDS: LACTATED RINGER'S 1000 ML INJ 1,000 ML IV SCH (05:19)
[2017-10-06 05:29] LABS: CHLORIDE 102 MEQ/L (98-107); SODIUM (NA) 139 MEQ/L (136-145)
[2017-10-06 05:35] LABS: ALBUMIN 2.6 GM/DL (3.4-5.0); BICARBONATE 30.9 MEQ/L (21.0-32.0); BLOOD UREA NITROGEN 2 MG/DL (7-18); CALCIUM 8.3 MG/DL (8.5-10.1); GLUCOSE,RANDOM 100 MG/DL (74-106); MAGNESIUM 1.5 MG/DL (1.5-2.5)
[2017-10-06 05:38] LABS: ALT (GPT) 93 U/L (12-78); AST (GOT) 152 U/L (15-37)
[2017-10-06 05:39] LABS: CREATININE 0.52 MG/DL (0.60-1.30); GLOMERULAR FILTRATION RATE 164 ML/MIN (>89)
[2017-10-06 05:40] LABS: TOTAL PROTEIN 6.4 GM/DL (6.4-8.2)
[2017-10-06 05:41] LABS: ALKALINE PHOSPHATASE 59 U/L (45-117)
[2017-10-06] MEDS: MAGNESIUM SULFATE INJ 2 GM in SODIUM CHLORIDE 0.9% INJ 96 ML IV PRN (06:43)
[2017-10-06] MEDS: CYANOCOBALAMIN 100 MCG TAB PO SCH (08:27)
[2017-10-06] MEDS: CARVEDILOL 6.25 MG TAB PO SCH ×2 (08:27→22:31)
[2017-10-06] MEDS: chlordiazePOXIDE 25 MG CAP PO SCH ×3 (08:27→17:25)
[2017-10-06] MEDS: THIAMINE HCL 100 MG TAB PO SCH (08:27)
[2017-10-06] MEDS: FOLIC ACID 1 MG TAB PO SCH (08:28)
[2017-10-06] MEDS: POTASSIUM CHLORIDE 10 MEQ CONTROLLED RELEASE TAB PO SCH (09:00)
[2017-10-06] MEDS: SODIUM CHLORIDE 0.9% FLUSH 10 ML FLUSH IV FLUSH SCH ×2 (09:00→22:31)
[2017-10-06] MEDS: MUPIROCIN 2% OINT 1 APPLIC/GM SYR EACH NARE SCH ×2 (13:18→22:31)
[2017-10-06] MEDS: LORazepam 2 MG TAB PO PRN (17:30)
[2017-10-06] MEDS: LORazepam 1 MG TAB PO PRN (22:38)
[2017-10-07 00:13] VITALS: BP 121/82; PULSE 88; RESP 20; TEMP 99.2; O2SAT 95
[2017-10-07 03:30] VITALS: BP 123/76; PULSE 96; RESP 18; TEMP 98.8; O2SAT 98
[2017-10-07] MEDS: CHLORHEXIDINE GLUCONATE 2 % 1 PACK (2 CLOTHS)(taper/protocol) TOPICAL SCH (04:00)
[2017-10-07] MEDS: LORazepam 1 MG TAB PO PRN (04:58)
[2017-10-07 06:48] LABS: AUTOMATED NEUTROPHIL # 2.2 TH/MM3 (1.8-7.7); BASOPHIL % 0.8 % (0.0-2.0); EOSINOPHIL # 0.1 TH/MM3 (0-0.4); EOSINOPHIL % 2.7 % (0.0-4.0); HEMATOCRIT 36.4 % (39.0-51.0); HEMOGLOBIN 12.4 GM/DL (13.0-17.0); LYMPH % 21.7 % (9.0-44.0); LYMPHOCYTE # 0.8 TH/MM3 (1.0-4.8); MEAN CELL VOLUME 100.8 FL (80.0-100.0); MEAN CORPUSCULAR HEMOGLOBIN 34.3 PG (27.0-34.0); MEAN PLATELET VOLUME 7.6 FL (7.0-11.0); MONO % 14.3 % (0.0-8.0); MONOCYTE # 0.5 TH/MM3 (0-0.9); NEUT % 60.5 % (16.0-70.0); PLATELET COUNT 86 TH/MM3 (150-450); RED BLOOD COUNT 3.61 MIL/MM3 (4.50-5.90); RED CELL DISTRIBUTION WIDTH 12.2 % (11.6-17.2); WHITE BLOOD COUNT 3.7 TH/MM3 (4.0-11.0)
[2017-10-07 06:57] LABS: BICARBONATE 30.1 MEQ/L (21.0-32.0); CALCIUM 8.6 MG/DL (8.5-10.1)
[2017-10-07 07:00] VITALS: BP 138/85; PULSE 97; RESP 18; TEMP 98.6; O2SAT 96
[2017-10-07 07:01] LABS: CREATININE 0.76 MG/DL (0.60-1.30)
[2017-10-07] MEDS: chlordiazePOXIDE 25 MG CAP PO SCH ×2 (09:57→14:20)
[2017-10-07] MEDS: POTASSIUM CHLORIDE 10 MEQ CONTROLLED RELEASE TAB PO SCH (09:57)
[2017-10-07] MEDS: THIAMINE HCL 100 MG TAB PO SCH (09:57)
[2017-10-07] MEDS: FOLIC ACID 1 MG TAB PO SCH (09:57)
[2017-10-07] MEDS: MUPIROCIN 2% OINT 1 APPLIC/GM SYR EACH NARE SCH (09:58)
[2017-10-07] MEDS: SODIUM CHLORIDE 0.9% FLUSH 10 ML FLUSH IV FLUSH SCH (09:58)
[2017-10-07] MEDS: CARVEDILOL 6.25 MG TAB PO SCH (09:58)
[2017-10-07] MEDS: CYANOCOBALAMIN 100 MCG TAB PO SCH (10:00)
[2017-10-07 11:52] VITALS: BP 137/84; PULSE 93; RESP 18; TEMP 99.1; O2SAT 98
--- NOTE | 2017-10-07 12:47 | HHI.PR ---
Subjective Remarks Follow-up alcohol withdrawal, DTs/multiple electrolyte abnormalities October 07, 2017-patient seen and examined, reported improvement of hand tremors. Alert and oriented 3. Vital stable. Objective Vitals Vital Signs Date Time Temp Pulse Resp B/P (MAP) Pulse Ox O2 Delivery O2 Flow Rate FiO2 10/07/17 11:52 99.1 93 18 137/84 (101) 98 10/07/17 07:00 98.6 97 18 138/85 (102) 96 10/07/17 00:13 99.2 88 20 121/82 (95) 95 10/06/17 23:24 99.2 88 20 121/82 (95) 95 10/06/17 20:49 100.4 101 22 143/91 (108) 96 10/06/17 19:46 94 21 10/06/17 15:00 100.6 85 18 132/85 (101) 10/06/17 13:01 108 20 132/83 (99) 98 I/O 10/06/17 10/06/17 10/06/17 10/07/17 10/07/17 10/07/17 07:00 15:00 23:00 07:00 15:00 23:00 Intake Total 1170 ml 1050 ml 221 ml 120 ml Output Total 2500 ml 1551 ml 450 ml Balance -1330 ml -501 ml -229 ml 120 ml Intake Oral 220 ml 750 ml 221 ml 120 ml IV Total 950 ml 300 ml Output Urine Total 2500 ml 1550 ml 450 ml Stool Total 0 ml 1 ml # Voids 100 # Bowel Movements 0 Result Diagram: 10/07/17 0544 10/07/17 0544 Imaging Last Impressions Head CT 10/03/171517 Signed Impressions: Service Date/Time: Tuesday, October 03, 2017 16:00 - CONCLUSION: 1. Stable senescent changes. 2. No acute intracranial abnormality. Sammy Solomon MD Chest X-Ray 10/03/175 Signed Impressions: Service Date/Time: Tuesday, October 03, 2017 15:45 - CONCLUSION: 1. No acute cardiopulmonary disease. Sammy Solomon MD Objective Remarks GENERAL: NAD SKIN: Warm and dry. HEAD: Normocephalic. EYES: No scleral icterus. No injection or drainage. NECK: Supple, trachea midline. No JVD or lymphadenopathy. CARDIOVASCULAR: Regular rate and rhythm without murmurs, gallops, or rubs. RESPIRATORY: Breath sounds equal bilaterally. No accessory muscle use. GASTROINTESTINAL: Abdomen soft, non-tender, nondistended. MUSCULOSKELETAL: No cyanosis, or edema. BACK: Nontender without obvious deformity. No CVA tenderness. Procedures NOne A/P Problem List: (1) Hypokalemia ICD Code: E87.6 - Hypokalemia Status: Acute (2) Withdrawal symptoms, alcohol ICD Code: F10.239 - Withdrawal symptoms, alcohol Status: Acute (3) Hypomagnesemia ICD Code: E83.42 - Hypomagnesemia Status: Acute (4) LFT elevation ICD Code: R79.89 - LFT elevation Status: Acute Assessment and Plan 57-year-old man with Alcohol withdrawal symptoms DTs Symptoms improving Currently on CIWA protocol, rally pack, Librium protocol Transaminitis Secondary to alcohol abuse Hepatitis profile negative Multiple electrolytes derangement Resolved post replacement DVT prophylaxis: Bilateral SCDs GI prophylaxis: PPI Feng Hwang MD October 07, 2017 12:47
[2017-10-07] MEDS ORDERED: FOLI1TAB6 PO (12:49)
[2017-10-07] MEDS ORDERED: THIA100 PO (12:49)
[2017-10-07] MEDS ORDERED: CYAN100 PO (12:49)
--- NOTE | 2017-10-07 12:51 | HHI.DS ---
Discharge Summary Admission Date October 03, 2017 at 17:25 Discharge Date: October 07, 2017 Admitting Diagnosis Hypokalemia, ETOH, caregiver issues, blind (1) Hypokalemia ICD Code: E87.6 - Hypokalemia Status: Acute (2) Withdrawal symptoms, alcohol ICD Code: F10.239 - Withdrawal symptoms, alcohol Status: Acute (3) Hypomagnesemia ICD Code: E83.42 - Hypomagnesemia Status: Acute (4) LFT elevation ICD Code: R79.89 - LFT elevation Status: Acute Procedures NOne Brief History - From Admission This patient is a 57-year-old gentleman with a history of ischemic optic neuritis and requires quite a bit of care. He also drinks quite a bit of alcohol and has been doing very well living independently. His neighbors brought him into the hospital because he was unable to care for himself. Patient drinks liquor daily and reports "I am going into DTs". His alcohol level on arrival was 330. Patient did have elevated IN gap and had some hypomagnesemia of 1.5 as well as hypokalemia of 2.7. His LFTs are elevated. Patient has been given IV hydration electrolytes and appears to have improved somewhat. On arrival and evaluation here patient is very tachycardic and tremulous and will need further evaluation in the hospital. CBC/BMP: 10/07/17 0544 10/07/17 0544 Significant Findings Laboratory Tests Test 10/04/17 21:24 10/05/17 04:35 10/05/17 20:50 10/06/17 04:25 Potassium Level 3.1 MEQ/L (3.5-5.1) 3.3 MEQ/L (3.5-5.1) 3.4 MEQ/L (3.5-5.1) Blood Urea Nitrogen 2 MG/DL (7-18) Creatinine 0.52 MG/DL (0.60-1.30) Albumin 2.6 GM/DL (3.4-5.0) Calcium Level 8.3 MG/DL (8.5-10.1) Aspartate Amino Transf (AST/SGOT) 152 U/L (15-37) Alanine Aminotransferase (ALT/SGPT) 93 U/L (12-78) Test 10/07/17 05:44 White Blood Count 3.7 TH/MM3 (4.0-11.0) Red Blood Count 3.61 MIL/MM3 (4.50-5.90) Hemoglobin 12.4 GM/DL (13.0-17.0) Hematocrit 36.4 % (39.0-51.0) Mean Corpuscular Volume 100.8 FL (80.0-100.0) Mean Corpuscular Hemoglobin 34.3 PG (27.0-34.0) Platelet Count 86 TH/MM3 (150-450) Monocytes (%) (Auto) 14.3 % (0.0-8.0) Lymphocytes # (Auto) 0.8 TH/MM3 (1.0-4.8) Platelet Estimate LOW (NORMAL) Imaging Last Impressions Head CT 10/03/17 1518 Signed Impressions: Service Date/Time: Tuesday, October 03, 2017 16:00 - CONCLUSION: 1. Stable senescent changes. 2. No acute intracranial abnormality. Sammy Solomon MD Chest X-Ray 10/03/17 1518 Signed Impressions: Service Date/Time: Tuesday, October 03, 2017 15:45 - CONCLUSION: 1. No acute cardiopulmonary disease. Sammy Solomon MD PE at Discharge GENERAL: NAD SKIN: Warm and dry. HEAD: Normocephalic. EYES: No scleral icterus. No injection or drainage. NECK: Supple, trachea midline. No JVD or lymphadenopathy. CARDIOVASCULAR: Regular rate and rhythm without murmurs, gallops, or rubs. RESPIRATORY: Breath sounds equal bilaterally. No accessory muscle use. GASTROINTESTINAL: Abdomen soft, non-tender, nondistended. MUSCULOSKELETAL: No cyanosis, or edema. BACK: Nontender without obvious deformity. No CVA tenderness. Hospital Course Patient was admitted for alcohol withdrawal with delirium for which she was started on CIWA protocol, rally pack and Librium with improvement of symptoms. Physical therapy was consulted. All electrolyte abnormalities were corrected accordingly. Physical therapy was consulted. Prior to discharge, patient's condition improved and vitals remained stable. Pt Condition on Discharge: Good Discharge Disposition: Discharge Home Discharge Time: <= 30 minutes Discharge Instructions DIET: Follow Instructions for: As Tolerated, No Restrictions Activities you can perform: Regular-No Restrictions Follow up Referrals: PCP Follow-up New Medications: Cyanocobalamin (Vitamin B12) 100 Mcg Tab 100 MCG PO DAILY for Immunosuppression, #30 TAB Folic Acid (Folic Acid) 1 Mg Tablet 1 MG PO DAILY for Alcohol Detox, #30 MG Thiamine HCl (Gnp Vitamin B-1) 100 Mg Tab 100 MG PO DAILY for Alcohol Detox, #30 TAB Continued Medications: Atorvastatin (Atorvastatin) 40 Mg Tab 0 PO HS for Cholesterol Management, #30 TAB 0 Refills Carvedilol (Carvedilol) 12.5 Mg Tab 12.5 MG PO DAILY, #60 TAB 0 Refills Nifedipine (Nifedipine ER) 90 Mg Tab 30 MG DAILY 30 MG ONCE DAILY Torsemide (Torsemide) 5 Mg Tab 5 MG PO DAILY, #30 TAB 0 Refills Trazodone (Trazodone) 50 Mg Tab 0 PO HS for Control Depression, #30 TAB 0 Refills Feng Hwang MD October 07, 2017 12:51
[2017-10-07 15:00] VITALS: BP 123/76; PULSE 96; RESP 18; TEMP 98.8; O2SAT 98
== END 2017-10-07 17:25 | disposition home or self-care (01) | DRG 897 ==
LOC: PHED 14:59 → PHEDA 17:24 → OBSVTOIN 17:25 → PHICU 18:56 → PH3B 10-06 14:47
PROVIDERS: ADMIT Hospitalist; ATTEND Hospitalist
DX: F10.231 Alcohol dependence with withdrawal delirium (principal); E83.42 Hypomagnesemia; I10 Essential (primary) hypertension; H46.8 Other optic neuritis; E78.5 Hyperlipidemia, unspecified; E87.6 Hypokalemia; H47.019 Ischemic optic neuropathy, unspecified eye; H54.7 Unspecified visual loss; F41.9 Anxiety disorder, unspecified; R74.0 Nonspecific elevation of levels of transaminase and lactic acid dehydrogenase [LDH]; Y90.8 Blood alcohol level of 240 mg/100 ml or more; Z90.49 Acquired absence of other specified parts of digestive tract; R53.1 Weakness
CPT/HCPCS: 70450; 71045; 80048; 80053; 80074; 80178; 80307; 81001; 82550; 83735; 84100; 84132; 84484; 85025; 85610; 85730; 87641; 93005; 94002; 94003; 96365; J2060; J2405; J3475; J3480; J7030; J7050; J7120